=== PATIENT | female | born 1960 | race Caucasian/White ===

== ENCOUNTER 2019-05-21 18:19 | Inpatient (IN) | payer OTHER ==
[~2019-05-21] VITALS: Ht 175.3 cm; Wt 90.7 kg
[2019-05-21 18:23] VITALS: BP 144/81
[2019-05-21 18:48] LABS: ABSOLUTE BASOPHILS 0.1 thou/uL (0.0-0.2); ABSOLUTE EOSINOPHILS 0.4 thou/uL (0.0-0.7); ABSOLUTE LYMPHOCYTES 4.2 thou/uL (0.8-5.3); ABSOLUTE MONOCYTES 0.8 thou/uL (0.0-1.2); ABSOLUTE NEUTROPHILS 4.6 thou/uL (1.6-8.1); BASOPHILS 0.8 %; EOSINOPHILS 4.1 %; HEMATOCRIT 40.4 % (37.0-47.0); HEMOGLOBIN 12.9 gm/dL (12.0-15.0); LYMPHOCYTES 41.5 %; MCH 30.2 pg (26.0-34.0); MCHC 32.1 g/dL (28.0-37.0); MCV 94.2 fL (80.0-100.0); MONOCYTES 8.3 %; MPV 7.4 fl. (7.2-11.1); NUCLEATED RBCS 0 /100WBC; PLATELET COUNT* 388 thou/uL (150-400); POLYS 45.3 %; RBC 4.28 mil/uL (4.20-5.00); RDW-CV 15.5 % (10.5-14.5); WBC 10.1 thou/uL (4.0-11.0)
[2019-05-21 18:53] LABS: ANION GAP 12 mmol/L (7-16); BUN 12 mg/dL (7-18); CALCIUM 8.4 mg/dL (8.5-10.1); CHLORIDE 105 mmol/L (98-107); CO2 25 mmol/L (21-32); CREATININE 0.9 mg/dL (0.6-1.3); GLUCOSE 64 mg/dL (70-99); POTASSIUM 3.9 mmol/L (3.5-5.1); SODIUM 142 mmol/L (136-145)
[2019-05-21 19:02] LABS: ALBUMIN 3.3 g/dL (3.4-5.0); ALKALINE PHOSPHATASE 89 U/L (46-116); MAGNESIUM 2.1 mg/dL (1.8-2.4); SGOT 17 U/L (15-37); SGPT 11 U/L (30-65); TOTAL BILIRUBIN 0.1 mg/dL (<0.1-1.0); TOTAL PROTEIN 6.6 g/dL (6.4-8.2); TROPONIN-I LEVEL <0.06 ng/mL (<0.06)
[2019-05-21 20:27] LABS: URINE BILIRUBIN NEGATIVE (Negative); URINE BLOOD NEGATIVE (Negative); URINE CLARITY CLEAR; URINE COLOR YELLOW; URINE GLUCOSE-RANDOM NEGATIVE (Negative); URINE KETONES NEGATIVE (Negative); URINE LEUKOCYTES-REFLEX NEGATIVE (Negative); URINE NITRITE-REFLEX NEGATIVE (Negative); URINE PROTEIN NEGATIVE (Negative); URINE SPECIFIC GRAVITY 1.015 (1.005-1.030); URINE UROBILINOGEN 0.2 E.U./dl (0.2-1.0)
[2019-05-21] MEDS ORDERED: SYNTHROID50 MCG PO (20:32)
[2019-05-21] MEDS ORDERED: VENLAFAXINE HC225 MG PO (20:33)
[2019-05-21] MEDS ORDERED: HYDROXYZINE HCL25 M1 PO (20:34)
[2019-05-21 20:36] LABS: AMP/METHAMP Negative (Negative); BARBITURATES Negative (Negative); BENZODIAZEPINES Negative (Negative); COCAINE Negative (Negative); METHADONE Negative (Negative); OPIATES Negative (Negative); PCP Negative (Negative); THC Negative (Negative)
[2019-05-21 22:30] VITALS: BP 122/78
[2019-05-22] VITALS: BP 141/79
[2019-05-22 04:00] VITALS: BP 112/74
[2019-05-22 04:51] LABS: CALCIUM 8.5 mg/dL (8.5-10.1); CREATININE 0.6 mg/dL (0.6-1.3); MAGNESIUM 2.3 mg/dL (1.8-2.4); POTASSIUM 3.8 mmol/L (3.5-5.1)
[2019-05-22 08:00] VITALS: BP 127/76
[2019-05-22 11:30] VITALS: BP 137/78
--- NOTE | 2019-05-22 11:34 | EKG ---
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
[2019-05-22 15:57] VITALS: BP 117/75
[2019-05-22 20:24] VITALS: BP 114/72
[2019-05-23] VITALS: BP 108/65
[2019-05-23 03:10] LABS: GLYCOHEMOGLOBIN (HGB A1C) 5.7 % (4.8-5.6)
[2019-05-23 04:00] VITALS: BP 136/82
[2019-05-23 08:00] VITALS: BP 118/68
[2019-05-23] MEDS ORDERED: B12INJ SUBQ (10:13)
[2019-05-23 12:08] VITALS: BP 118/68
[2019-05-23] MEDS ORDERED: LYRICA 50 MG50 MG PO (12:08)
--- NOTE | 2019-05-23 13:18 | 2DMMODE ---
[place] [address] 2 D/M-MODE ECHOCARDIOGRAM Name: CLARIBEL STEPHEN Room: [address]#: [id number] Admission: 05/21/19 Attend Phys: Champ Torres, Discharge: 05/23/19 Date of : 58 Date of Service: 05/23/19 1317 Report #: [id number] THIS REPORT FOR: //name// APPROVED REPORT Study performed: 05/23/2019 11:13:01 EXAM: Comprehensive 2D, Doppler, and color-flow Echocardiogram Patient Location: In-Patient Room #: 208 Status: routine BSA: 2.07 HR: 83 bpm BP: 136/82 mmHg Rhythm: NSR Other Information Study Quality: Good Indications Arrhythmia 2D Dimensions IVSd: 11.25 (7-11mm) LVOT Diam: 20.70 (18-24mm) LVDd: 48.39 mm PWd: 9.55 (7-11mm) Ascending Ao: 32.22 (22-36mm) LVDs: 31.19 (25-40mm) Aortic Root: 31.56 mm Volumes Left Atrial Volume (Systole) LA ESV Index: 20.30 mL/m2 Aortic Valve AoV Peak Vasiliy.: 1.16 m/s AO Peak Gr.: 5.39 mmHg LVOT Max P.73 mmHg AO Mean Gr.: 2.99 mmHg LVOT Mean P.28 mmHg LVOT Max V: 0.83 m/s AO V2 VTI: 20.85 cm LVOT Mean V: 0.52 m/s NABOR (VTI): 2.56 cm2 LVOT V1 VTI: 15.86 cm Mitral Valve E/A Ratio: 0.75 MV Decel. Time: 281.78 ms MV E Max Vasiliy.: 0.57 m/[place] [address] 2 D/M-MODE ECHOCARDIOGRAM Name: CLARIBEL STEPHEN Room: [address]#: [id number] Admission: 05/21/19 Attend Phys: Champ Torres, Discharge: 05/23/19 Date of : 58 Date of Service: 05/23/19 1317 Report #: [id number] MV PHT: 81.72 ms MVA (PHT): 2.69 cm2 TDI E/Lateral E': 3.35 E/Medial E': 6.33 Medial E' Vasiliy.: 0.09 m/s Lateral E' Vasiliy.: 0.17 m/s Pulmonary Valve PV Peak Vasiliy.: 0.81 m/s PV Peak Gr.: 2.62 mmHg Tricuspid Valve RAP Estimate: 5.00 mmHg TR Peak Gr.: 16.86 mmHg RVSP: 21.00 mmHg PA Pressure: 21.00 mmHg Left Ventricle The left ventricle is normal size. There is normal LV segmental wall motion. There is normal left ventricular wall thickness. Left ventricular systolic function is normal. The left ventricular ejection fraction is within the normal range. LVEF is 55-60%. Grade I - abnormal relaxation pattern. Right Ventricle The right ventricle is normal size. The right ventricular systolic function is normal. Atria The left atrium size is normal. The right atrium size is normal. Aortic Valve The aortic valve is normal in structure. No aortic regurgitation is present. There is no aortic valvular stenosis. Mitral Valve The mitral valve is normal in structure. Trace mitral regurgitation. No evidence of mitral valve stenosis. Tricuspid Valve The tricuspid valve is normal in structure. Trace tricuspid regurgitation. Pulmonic Valve The pulmonary valve is normal in structure. There is no pulmonic [place] [address] 2 D/M-MODE ECHOCARDIOGRAM Name: ATTILACLARIBEL Rogers Nubia Room: [address]#: [id number] Admission: 05/21/19 Attend Phys: Champ Torres, Discharge: 05/23/19 Date of : 58 Date of Service: 05/23/19 1317 Report #: [id number] Great Vessels The aortic root is normal in size. IVC is normal in size and collapses >50% with inspiration. Pericardium There is no pericardial effusion. <Conclusion> Left ventricular systolic function is normal. The left ventricular ejection fraction is within the normal range. <ELECTRONICALLY SIGNED> By: Jeffy Gerber MD, [facility] 05/23/19 1317 1317 131 Jeffy Gerber MD, FAC /INF
--- NOTE | 2019-05-25 08:40 | EEG ---
[address] [address] EEG STUDY REPORT Name: ATTILAUBALDO RogersCLARIBEL D Room: [address] IN [place].R.#: [id number] Admission: 05/21/19 Attend Phys: Champ Torres MD Discharge: 05/23/19 Date of : 58 Report #: [id number] THIS REPORT FOR: //name// CC: FAM physician/PCP Champ Torres DATE OF SERVICE: 05/23/2019 This patient is being evaluated for syncope. EEG was done by placing the electrode by standard 10-20 system of electrode placement. Both referential and sequential montages were used for recording. Background activity in this patient's EEG is about 9 Hz and 30 microvolt. The patient became drowsy and that is associated with bilateral slowing and vertex sharp waves. Photic stimulation was unremarkable. Throughout the record, no active epileptiform activity was noticed. IMPRESSION: This patient's EEG is within normal limit. Thank you very much for this referral. <ELECTRONICALLY SIGNED> By: Vinod Gayle MD 05/25/19 0840 1614 [id number] Gayle MD /nt
== END 2019-05-23 13:17 | disposition home or self-care (01) | DRG 101 ==
LOC: M.ERS 18:19 → M.TBA-ER 20:48 → M.2W 22:45
PROVIDERS: Personal Emergency Response Attendant; ADMIT Internal Medicine
DX: R56.9 Unspecified convulsions (principal); R55 Syncope and collapse; E03.9 Hypothyroidism, unspecified; F32.9 Major depressive disorder, single episode, unspecified; E88.09 Other disorders of plasma-protein metabolism, not elsewhere classified; E16.2 Hypoglycemia, unspecified; M54.5 Low back pain; G89.29 Other chronic pain; G43.909 Migraine, unspecified, not intractable, without status migrainosus; E53.8 Deficiency of other specified B group vitamins; R07.9 Chest pain, unspecified; Z79.899 Other long term (current) drug therapy; Z88.1 Allergy status to other antibiotic agents; Z88.2 Allergy status to sulfonamides; Z80.8 Family history of malignant neoplasm of other organs or systems